=== PATIENT | male | born 1985 | race Caucasian/White ===

== ENCOUNTER 2017-02-21 23:51 | Emergency (ER) | payer OTHER ==
[~2017-02-21] VITALS: Ht 167.6 cm; Wt 84.6 kg
[~2017-02-21 23:51] MED LIST: CEPH500T PO
[2017-02-22 00:05] VITALS: BP 160/99; PULSE 104; RESP 20; TEMP 98; O2SAT 97
[2017-02-22] MEDS ORDERED: LIDOCAINE HCL 1% PF 30 ML VIAL INFIL ONE (00:15)
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
[2017-02-22] MEDS ORDERED: ceFAZolin INJ 1,000 MG VIAL IM ONE (00:30)
[2017-02-22] MEDS ORDERED: CEPH-460 PO (01:31)
[2017-02-22 02:00] VITALS: BP 162/85; PULSE 99; RESP 18; O2SAT 98
[2017-02-22 02:15] LABS: AUTOMATED NEUTROPHIL # 5.8 TH/MM3 (1.8-7.7); BASOPHIL % 0.5 % (0.0-2.0); EOSINOPHIL # 0.3 TH/MM3 (0-0.4); EOSINOPHIL % 3.5 % (0.0-4.0); HEMATOCRIT 47.2 % (39.0-51.0); HEMO FLAGS DIFF FINAL; LYMPH % 30.4 % (9.0-44.0); LYMPHOCYTE # 2.9 TH/MM3 (1.0-4.8); MEAN CELL VOLUME 90.6 FL (80.0-100.0); MEAN CORPUSCULAR HEMOGLOBIN 30.1 PG (27.0-34.0); MEAN CORPUSCULAR HGB CONC 33.3 % (32.0-36.0); MONO % 6.6 % (0.0-8.0); PLATELET COUNT 241 TH/MM3 (150-450); RED BLOOD COUNT 5.22 MIL/MM3 (4.50-5.90); RED CELL DISTRIBUTION WIDTH 13.1 % (11.6-17.2); WHITE BLOOD COUNT 9.6 TH/MM3 (4.0-11.0)
[2017-02-22 02:23] LABS: AMPHETAMINE, URINE NEG (NEG); BARBITURATES, URINE NEG (NEG); CHLORIDE 106 MEQ/L (98-107); COCAINE, URINE POS (NEG); POTASSIUM 3.5 MEQ/L (3.5-5.1); SODIUM (NA) 144 MEQ/L (136-145)
[2017-02-22 02:27] LABS: ANION GAP 11 MEQ/L (5-15); BICARBONATE 27.2 MEQ/L (21.0-32.0); BLOOD UREA NITROGEN 10 MG/DL (7-18)
[2017-02-22 02:30] LABS: ALT (GPT) 112 U/L (12-78); AST (GOT) 63 U/L (15-37); GLOMERULAR FILTRATION RATE 89 ML/MIN (>89)
[2017-02-22 02:31] LABS: TOTAL BILIRUBIN ADULT 0.3 MG/DL (0.2-1.0)
[2017-02-22 02:33] LABS: ALKALINE PHOSPHATASE 61 U/L (45-117)
== END 2017-02-22 02:35 ==
LOC: PHED 23:51
DX: S01.01XA Laceration without foreign body of scalp, initial encounter (principal); S01.81XA Laceration without foreign body of other part of head, initial encounter; S51.812A Laceration without foreign body of left forearm, initial encounter; X99.1XXA Assault by knife, initial encounter
CPT/HCPCS: 12013; 12032; 80053; 80307; 85025; 96372; 99284; J0690

== ENCOUNTER 2017-02-22 02:57 | Emergency (ER) | payer OTHER ==
[~2017-02-22] VITALS: Ht 165.1 cm; Wt 75.0 kg
[~2017-02-22 02:57] MED LIST changes: +CEPH-460 PO
[2017-02-22 03:33] VITALS: BP 167/91; PULSE 94; RESP 16; TEMP 97.7; O2SAT 97
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
[2017-02-22 07:00] VITALS: BP 142/78; PULSE 82; RESP 16; O2SAT 98
[2017-02-22 10:30] VITALS: BP 129/69; PULSE 87; RESP 20; O2SAT 96
[2017-02-22 18:00] VITALS: BP 150/100; PULSE 97; RESP 18
[2017-02-22 21:18] VITALS: BP 150/90; PULSE 90; RESP 18; O2SAT 98
[2017-02-22] MEDS ORDERED: CEPHALEXIN MONOHYDRATE 500 MG CAP PO ONE (22:45)
== END 2017-02-22 23:46 ==
LOC: NEPA 02:57 → NEPJ 23:46
DX: F19.10 Other psychoactive substance abuse, uncomplicated (principal)
CPT/HCPCS: 99285